=== PATIENT | female | born 1995 ===

== ENCOUNTER 2017-10-11 21:52 | Emergency (ER) | payer BC ==
--- NOTE | 2017-10-11 22:14 | EDM.PDOC ---
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 Patient was seen 3 days ago in the clinic and had a CBC a blood type, A+, as well as other screening and tells me that she had an in office ultrasound was Daisha documenting a live IUP. The patient says that they have not had sexual intercourse in the last several days and she has had no burning or pain with urination no vaginal discharge no STD risks no STD history and no pelvic surgery history. She's not had nausea or vomiting no fevers no chills no upper respiratory symptoms. She's been eating and drinking normally. She said she went to the bathroom and saw some pink blood on the toilet paper as well as in the toilet bowl but no tissue and she was concerned about it. She has a lightheaded on now but she is not bleeding heavily. She has absolutely no pelvic cramping. Review of systems: As per history of present illness and below otherwise all systems reviewed and negative. Past medical history: As per history of present illness and as reviewed below otherwise noncontributory. Surgical history: As per history of present illness and as reviewed below otherwise noncontributory. Social history: No reported history of drug or alcohol abuse. Family history: As per history of present illness and as reviewed below otherwise noncontributory. Physical exam: Gen.: Well-developed well-nourished female who is nontoxic and moves easily and vital signs are noted by me HEENT: Atraumatic, normocephalic, negative for conjunctival pallor or scleral icterus, mucous membranes moist, throat clear, neck supple, nontender, trachea midline. Lungs: Clear to auscultation, breath sounds equal bilaterally, chest nontender. Heart: S1S2, regular rate and rhythm no overt murmurs Abdomen: Soft, nondistended, nontender. Negative for masses or hepatosplenomegaly. Negative for costovertebral tenderness. Pelvis: Stable nontender. Genitourinary: Deferred. Rectal: Deferred. Extremities: Atraumatic, negative for cords or calf pain. Neurovascular unremarkable. Neuro: Awake, alert, oriented. Cranial nerves II through XII unremarkable. Cerebellum unremarkable. Motor and sensory unremarkable throughout. Exam nonfocal. Diagnostics: CBC serum quantitative hCG UA, urine culture if indicated, pelvic ultrasound Patient had blood typing done 3 days ago which was A+ as well as a normal CBC Therapeutics: Please note that when patient went to give us a urine sample there was no bleeding on her light pad in her underwear and when she wiped it was some brown blood but no tissue or gross bleeding. Patient and family at bedside are aware of all testing results and care plan for home. We'll give antibiotics for the UTI and advise hydration and strict pelvic rest and close follow-up with our nurse produce wrapper. Patient wants a prescription for antibiotics not Insty Meds Impression: Threatened , UTI Definitive disposition and diagnosis as appropriate pending reevaluation and review of above. 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: Reports: Musculoskeletal History: Reports: None Neurological History: Reports: None Psychiatric History: Reports: None Endocrine/Metabolic History: Reports: None Hematologic History: Reports: None Immunologic History: Reports: None Oncologic (Cancer) History: Reports: None Dermatologic History: Reports: None - Infectious Disease History Infectious Disease History: Reports: None - Past Surgical History Head Surgeries/Procedures: Reports: None HEENT Surgical History: Reports: Tonsillectomy Female Surgical History: Reports: None Social & Family History - Family History Family Medical History: Noncontributory - Tobacco Use Smoking Status *Q: Never Smoker - Caffeine Use Caffeine Use: Reports: None - Recreational Drug Use Recreational Drug Use: No ED ROS GENERAL - Review of Systems Review Of Systems: ROS reveals no pertinent complaints other than HPI. ED EXAM, GENERAL - Physical Exam Exam: See Below (See dictation) Course - Vital Signs Last Recorded V/S: Last Vital Signs Temp 37.0 C 10/11/17 22:00 Pulse 102 H 10/11/17 22:00 Resp 18 10/11/17 22:00 BP 127/74 10/11/17 22:00 Pulse Ox 98 10/11/17 22:00 - Orders/Labs/Meds Orders: Active Orders 24 hr Category Date Time Status OB 2 Or 3 Tri Sgl 1st Gest [US] Stat Exams 10/11/17 22:10 Taken CULTURE URINE [] Stat Lab 10/11/17 23:13 Received Labs: Laboratory Tests 10/11/17 10/11/17 10/11/17 Range/Units 22:13 22:17 22:17 WBC 10.57 (4.0-11.0) K/uL RBC 4.81 (4.30-5.90) M/uL Hgb 14.0 (12.0-16.0) g/dL Hct 40.2 (36.0-46.0) % MCV 83.6 (80.0-98.0) fL MCH 29.1 (27.0-32.0) pg MCHC 34.8 (31.0-37.0) g/dL RDW Std Deviation 38.9 (28.0-62.0) fl RDW Coeff of Araseli 13 (11.0-15.0) % Plt Count 238 (150-400) K/uL MPV 9.40 (7.40-12.00) fL Neut % (Auto) 63.8 (48.0-80.0) % Lymph % (Auto) 27.6 (16.0-40.0) % [place] % (Auto) 7.6 (0.0-15.0) % Eos % (Auto) 0.9 (0.0-7.0) % Baso % (Auto) 0.1 (0.0-1.5) % Neut # (Auto) 6.8 H (1.4-5.7) K/uL Lymph # (Auto) 2.9 H (0.6-2.4) K/uL [place] # (Auto) 0.8 (0.0-0.8) K/uL Eos # (Auto) 0.1 (0.0-0.7) K/uL Baso # (Auto) 0.0 (0.0-0.1) K/uL Nucleated RBC % 0.0 /100WBC Nucleated RBCs # 0 K/uL HCG, Quant 75108.4 mIU/mL Urine Color YELLOW Urine Appearance CLOUDY Urine pH 5.5 (5.0-8.0) Ur Specific [place] >= 1.030 (1.001-1.035) Urine Protein NEGATIVE (NEGATIVE) mg/dL Urine Glucose (UA) NEGATIVE (NEGATIVE) mg/dL Urine Ketones NEGATIVE (NEGATIVE) mg/dL Urine Occult Blood LARGE H (NEGATIVE) Urine Nitrite NEGATIVE (NEGATIVE) Urine Bilirubin NEGATIVE (NEGATIVE) Urine Urobilinogen 0.2 (<2.0) EU/dL Ur Leukocyte Esterase NEGATIVE (NEGATIVE) Urine RBC 2-8 (0-2/HPF) Urine WBC 2-6 (0-5/HPF) Ur Epithelial Cells FEW (NONE-FEW) Urine Bacteria 2+ H (NEGATIVE) Departure - Departure Time of Disposition: 23:33 Disposition: Home, Self-Care 01 Condition: Good Clinical Impression: Threatened UTI (urinary tract infection) Qualifiers: Urinary tract infection type: site unspecified Hematuria presence: without hematuria Qualified Code(s): N39.0 - Urinary tract infection, site not specified - Discharge Information Referrals: Daisha Orozco CNM [Primary Care Provider] - Forms: ED Department Discharge Additional Instructions: The following information is given to patients seen in the emergency department who are being discharged to home. This information is to outline your options for follow-up care. We provide all patients seen in our emergency department with a follow-up referral. The need for follow-up, as well as the timing and circumstances, are variable depending upon the specifics of your emergency department visit. If you don't have a primary care physician on staff, we will provide you with a referral. We always advise you to contact your personal physician following an emergency department visit to inform them of the circumstance of the visit and for follow-up with them and/or the need for any referrals to a consulting specialist. The emergency department will also refer you to a specialist when appropriate. This referral assures that you have the opportunity for followup care with a specialist. All of these measure are taken in an effort to provide you with optimal care, which includes your followup. Under all circumstances we always encourage you to contact your private physician who remains a resource for coordinating your care. When calling for followup care, please make the office aware that this follow-up is from your recent emergency room visit. If for any reason you are refused follow-up, please contact the [facility] emergency department at and ask to speak to the emergency department charge nurse. [facility] [address] [address] Strict pelvic rest with nothing in vagina and to you are cleared by Daisha and contact the clinic on Friday for follow-up care as we discussed. Return to ER as needed and as discussed. Push hydration and rest. Please fill the prescription you have been given for antibiotics and take them until they're finished. - My Orders Last 24 Hours: My Active Orders 10/11/17 22:10 OB 2 Or 3 Tri Sgl 1st Gest [US] Stat 10/11/17 23:13 CULTURE URINE [RM] Stat - Assessment/Plan Last 24 Hours: My Active Orders 10/11/17 22:10 OB 2 Or 3 Tri Sgl 1st Gest [US] Stat 10/11/17 23:13 CULTURE URINE [RM] Stat
--- NOTE | 2017-10-13 11:12 | US ---
EXAM DATE: 10/11/17 PATIENT'S AGE: 22 Patient: JACE MUHAMMAD Facility: [place], [place] Site . Site : 1996 Study: US OB Pelvis [id number] 10:47:21 PM Ordering Physician: Melissa Cooper Final Report: INDICATION: Vaginal bleeding, . Clinical gestational age 13 weeks 6 days. TECHNIQUE: Ultrasound OB pelvis transabdominal. Real-time johnson-scale imaging of the fetus was performed with anatomic survey limited to biometric measurements. COMPARISON: None FINDINGS: Sonographic imaging demonstrates a single intrauterine gestation. heart rate: 158 bpm Orientation: cephalic Placenta: Anterior without evidence of placenta previa or abruption on submitted images Amniotic fluid: Subjectively normal. Cervix: 3.4 cm in length The composite ultrasound gestational age is calculated at 14 weeks 2 days with an estimated sonographic due date of 04/09/2018. The estimated weight is 88 grams which lies at the 42nd %. The following biometric measurements were obtained: Biparietal diameter: 2.61 cm Head circumference: 18.9 80 cm Abdominal circumference: 7.69 cm Femur length: 1.3 cm Likely left ovarian corpus luteum cyst. Arterial and venous flow to left ovary is visualized. Right ovary unremarkable. IMPRESSION: 1. Single viable intrauterine with an estimated ultrasound gestational age of 14 weeks 2 days with current ultrasound ABHILASH 04/09/2018, concordant with clinical dating. 2. Anterior placenta with no evidence of placenta previa. Cervical length normal , measuring 3.4 centimeters. 3. Left ovarian corpus luteum cyst. Dictated by Hubert Umanzor MD @ 10/11/2017 11:30:13 PM Dictated by: Hubert Umanzor MD @ 10/11/2017 23:30:55 (Electronic Signature) Report Signed by Proxy. ALFONZO
== END 2017-10-11 23:50 | disposition home or self-care (01) ==
LOC: MW.ED 21:52
DX: O20.0 Threatened abortion (principal); O23.41 Unspecified infection of urinary tract in pregnancy, first trimester; Z3A.13 13 weeks gestation of pregnancy
CPT/HCPCS: 36415; 76805; 76805-26; 81001; 84702; 85025; 87086; 99284; 99284-25